=== PATIENT | male | born 1950 | race Caucasian/White ===

== ENCOUNTER 2022-10-28 01:48 | Day surgery (SDC) | payer MEDICARE, SELFPAY ==
[2022-10-16 13:48] VITALS: BMI 26.0
[2022-10-28 07:43] VITALS: BP 140/78; PULSE 54; RESP 16; TEMP 36; O2SAT 100; BMI 27.3
[2022-10-28] MEDS: LACTATED RINGERS 1,000 ML 150 ML IV CONT (07:51)
--- NOTE | 2022-10-28 07:53 | WPDANESEPPF ---
Anes - Initial Pre Proc Eval Procedure: Operation Date: 10/28/22 09:00 Proposed Procedures p Screening Colonoscopy - Duc Grigsby MD Date/Time: 10/28/22 07:53 Surgeon: Duc Grigsby MD Pre Op Diagnosis: neoplasm screening Patient Data Age: 72 Gender: M Height: 1.91 m Weight: 99.5 kg Last Vital Signs Temp 36.0 C L 10/28/22 07:43 Pulse 54 L 10/28/22 07:43 Resp 16 10/28/22 07:43 BP 140/78 10/28/22 07:43 Pulse Ox 100 10/28/22 07:43 O2 Del Method Room Air 10/28/22 07:43 Allergies Allergy/AdvReac Type Severity Reaction Status Date / Time sertraline Allergy Unknown pruritic Verified 10/28/22 07:42 eczematous rash, headache, fatigue lactose AdvReac Intermediate Gastrointestinal Verified 10/28/22 07:42 Upset Home Medications Medication Instructions Recorded Confirmed Type clopidogrel 75 mg tablet 75 mg PO DAILY 05/10/19 10/28/22 History diltiazem HCl 180 mg 180 mg PO DAILY 05/10/19 10/28/22 History capsule,extended release 24 hr (Cartia XT) fluticasone propionate 50 1 spray intranasal DAILY PRN 05/10/19 10/28/22 History mcg/actuation nasal Allergy Symptoms spray,suspension metoprolol tartrate 25 mg tablet 25 mg PO DAILY 05/10/19 10/28/22 History rosuvastatin 5 mg tablet 5 mg PO EVERY OTHER DAY 03/31/22 10/28/22 History Patient hx anesthesia problems: none Family hx anesthesia problems: none Results Review: All pre-operative results and documents have been reviewed as part of the pre-operative evaluation. [facility] Past Medical History Medical History (Updated 10/28/22 @ 07:56 by Marquise Strickland MD) CAD (coronary artery disease) two stents 4-15 in LAD Cervical radiculopathy due to degenerative joint disease of spine DJD (degenerative joint disease) of knee Essential (primary) hypertension Surgical History Surgical History H/O arthroscopy of knee H/O cataract extraction H/O heart artery stent H/O hernia repair Social History Social History Smoking status: Never smoker Alcohol intake: current Substance use: never Substance use type: does not use Lack of Transportation: No Lack of Food: Never True Current Housing: I Have Housing Concerned About Future Housing: No Difficulty Paying Gas/Electric Bills: No Difficulty Paying for Meds: No Currently Unemployed: No Education: Master's Degree or Higher Difficulty w/ Childcare or Family Care: No Living arrangements: with family Spiritual care concerns: No Anes - Eval Final PreProcedure Day of Procedure 10/28/22 07:53 Patient weight: overweight Heart: regular rate and rhythm Lungs: clear to auscultation and normal air movement Airway: Mallampati scale class II Neurological: alert and oriented Last oral intake: >/= 8 hours ASA classification: III Emergent: no Anesthetic plan: proceed Anesthesia type and monitoring: general GIVS Results Review: All pre-operative results and documents have been reviewed as part of the pre-operative evaluation. Informed Consent: The patient's anesthetic plan and its attendant risks and benefits were discussed with the patient/family/POA. Questions were solicited and answers provided to the satisfaction of the patient/family/POA.
--- NOTE | 2022-10-28 08:25 | PM.HPGS ---
History of Present Illness History of Present Illness Consent: Risks, benefits, and alternatives have been discussed and questions answered. Patient agrees to proceed with procedure. Chief complaint: neoplasm screening Narrative: Camacho Rahman is a 72 year old male Presents for screening colonoscopy. Patient's current weight appetite and bowel movements are normal. He denies abdominal pain. Patient has had no bleeding. Family history is noncontributory. Patient did have a previous colonoscopy in the past that was unremarkable. Review of Systems Review of Systems: Review of systems noncontributory. [facility] Past Medical History Medical History (Updated 10/28/22 @ 08:26 by Duc Grigsby MD) CAD (coronary artery disease) two stents 4-15 in LAD Cervical radiculopathy due to degenerative joint disease of spine DJD (degenerative joint disease) of knee Essential (primary) hypertension Surgical History Surgical History H/O arthroscopy of knee H/O cataract extraction H/O heart artery stent H/O hernia repair Social History Social History Smoking status: Never smoker Alcohol intake: current Substance use: never Substance use type: does not use Lack of Transportation: No Lack of Food: Never True Current Housing: I Have Housing Concerned About Future Housing: No Difficulty Paying Gas/Electric Bills: No Difficulty Paying for Meds: No Currently Unemployed: No Education: Master's Degree or Higher Difficulty w/ Childcare or Family Care: No Living arrangements: with family Spiritual care concerns: No Meds Home Medications and Allergies Home Medications Medication Instructions Recorded Confirmed Type clopidogrel 75 mg tablet 75 mg PO DAILY 05/10/19 10/28/22 History diltiazem HCl 180 mg 180 mg PO DAILY 05/10/19 10/28/22 History capsule,extended release 24 hr (Cartia XT) fluticasone propionate 50 1 spray intranasal DAILY PRN 05/10/19 10/28/22 History mcg/actuation nasal Allergy Symptoms spray,suspension metoprolol tartrate 25 mg tablet 25 mg PO DAILY 05/10/19 10/28/22 History rosuvastatin 5 mg tablet 5 mg PO EVERY OTHER DAY 03/31/22 10/28/22 History Allergies Allergy/AdvReac Type Severity Reaction Status Date / Time sertraline Allergy Unknown pruritic Verified 10/28/22 07:42 eczematous rash, headache, fatigue lactose AdvReac Intermediate Gastrointestinal Verified 10/28/22 07:42 Upset Vital Signs Vital Signs - 24 hr 10/28/22 07:43 Temperature 96.8 F L Pulse Rate 54 L Respiratory Rate 16 Blood Pressure 140/78 Pulse Oximetry 100 Oxygen Delivery Room Air Exam Narrative: Physical exam reveals patient to be alert. Vital signs stable. HEENT exam is unremarkable. Patient is anicteric. Lungs are clear to auscultation and percussion. Heart is without murmur or extra sounds. Abdomen bowel sounds are present soft nontender with no organomegaly. Digital external rectal exam is normal. Assessment and Plan Assessment and plan (1) Encounter for screening colonoscopy: Code(s): Z12.11 - Encounter for screening for malignant neoplasm of colon Status: Acute Assessment and Plan: Patient presents for screening colonoscopy. He appears to be at average risk for colon polyps. Further recommendations may be given after endoscopy.
[2022-10-28 09:20] VITALS: BP 100/63; PULSE 57; RESP 25; O2SAT 100
[2022-10-28 09:30] VITALS: BP 115/71; PULSE 54; RESP 19; O2SAT 98
[2022-10-28 09:40] VITALS: BP 125/79; PULSE 56; RESP 20; O2SAT 98
== END 2022-10-28 09:45 | disposition home or self-care (01) ==
PROVIDERS: PCP Family Medicine; Visit Provider Internal Medicine Gastroenterology
PROC: 0DJD8ZZ Inspection of Lower Intestinal Tract, Via Natural or Artificial Opening Endoscopic (ICD-10-PCS; CPT 45378; principal; 2022-10-28 09:00)
DX: Z12.11 Encounter for screening for malignant neoplasm of colon (principal); D12.2 Benign neoplasm of ascending colon; K64.8 Other hemorrhoids; K57.30 Diverticulosis of large intestine without perforation or abscess without bleeding; I25.10 Atherosclerotic heart disease of native coronary artery without angina pectoris; I10 Essential (primary) hypertension; Z95.5 Presence of coronary angioplasty implant and graft; Z79.02 Long term (current) use of antithrombotics/antiplatelets
CPT/HCPCS: 45385; 88305; J2704; J7120